=== PATIENT | male | born 1960 | race Caucasian/White ===

== ENCOUNTER 2018-01-01 13:55 | Emergency (ER) | payer MEDICARE, MEDICAID ==
--- NOTE | 2018-01-01 14:50 | EDM.PDOC ---
ED HPI GENERAL MEDICAL PROBLEM - General Chief Complaint: Respiratory Problem Stated Complaint: SOB Time Seen by Provider: 01/01/18 14:00 Source of Information: Reports: Other (Patient was not able to verbalize at all once he entered the [facility] of the hospital.) History Limitations: Reports: Respiratory Distress (Acute cardiac arrest presented with severe respiratory distress.), Other - History of Present Illness INITIAL COMMENTS - FREE TEXT/NARRATIVE: This 57-year-old male apparently was dropped off at the front door the hospital by his brother Elbert.. He has not been feeling well for a couple of days according to her niece who attended the ER approximately an hour after the patient had arrived. She states she went over to see him yesterday and he was feeling very poorly and she had one didn't come to the hospital but he declined. When she went back to see him this afternoon he was gone and she presumed he may be at the hospital. Patient presented in a moribund fashion. He was brought into the ED per and wheelchair arthritic and bernal in color and could not verbalize. He was in obvious respiratory distress according to the triage nurse. He is brought back immediately to the trauma bay and lifted up onto the gurney. He never did verbalize any complaints and then he collapsed. We could find no pulses. Therefore CPR was commenced he was intubated as quickly as possible with an 8 Spanish ET tube. Can't doubt any medications given. Bateman was clear. ET tube was taped at 22 cm corner of the left lip. There was always poor air entry to the left lung field and good air entry to the right lung field suggesting possible right mainstem intubation. two 2 chest x-rays were done and we did withdraw the tube somewhat and still has significant decreased air into the left lung field compared to the right. ET tube appears to be 2 cm above the chavez on the last chest x-ray. IV access was a problem and therefore an IO was started in his left leg. Initial dose of adrenaline 1 no was given intra osseous. Central line attempt right subclavian 2 with good blood return but unable to pass a guidewire due to coiling along the rib. Procedure abandoned and central line placed right femoral vein. CPR was carried out for approximately 5 minutes in total. Once the adrenaline got into system he developed a spontaneous heart rate in the 120s sinus and started to generate a low blood pressure. Initial blood gases revealed a pH of 6.9 therefore received 2 Amps of sodium bicarbonate. Nasal 16-gauge nasogastric tube passed through the right naris into the stomach. Good blood. appreciated. X-ray done last revealed the nasogastric tube to be below the diaphragm in the stomach. No evidence of left-sided pneumothorax or right-sided pneumothorax after subclavian line attempt was identified. There is diffuse severe vascular congestion with moderate cardiomegaly present. Patient was placed on a vent with initial settings of FiO2 100%. Tidal volume of 550 PEEP of 5 rate of 14. The CO2 monitor continued to show sustained levels at 70s. Her rate was increased to 18/m and PCO2 went down into the 60s. Repeat blood gases along the way revealed he still had a significant metabolic acidosis likely from perfusion or reperfusion of his extremities once his blood pressure returned. He was given 2 further doses of sodium bicarbonate 22 A. The ventilator was turned up to 24/m with a PEEP of 10. Paramedics arrived with the flight team and took over his care to provide transport to [facility] in [place]. CT of his brain was carried out while he was in the department and it did not reveal any intracranial mass effect or intracranial bleeding. It appears that he suffered a primary respiratory arrest with then subsequent cardiac arrest. Onset: Unknown/Unsure (Patient reports he wasn't feeling well yesterday but was not clear on what was wrong. He appeared to be short of breath) Onset Date: 01/01/18 (Respiratory arrest leading to cardiac arrest upon reaching the ED at 1400 hrs. today.) - Related Data Allergies Allergy/AdvReac Type Severity Reaction Status Date / Time No Known Allergies Allergy Verified 12/12/15 15:23 Home Meds: Home Meds Lisinopril/Hydrochlorothiazide [Lisinopril-Hctz 20-12.5 mg Tab] 1 each PO DAILY 07/08/15 [History] Omeprazole 20 mg PO DAILY 07/08/15 [History] metFORMIN [Glucophage] 850 mg PO BIDMEALS 07/08/15 [History] ClonazePAM [KlonoPIN] 1 mg PO BID 08/31/15 [History] ALPRAZolam [Xanax] 1 mg PO BEDTIME 01/01/18 [History] Albuterol [Ventolin HFA] 1 - 2 puff INH ASDIRECTED PRN 01/01/18 [History] Escitalopram [Lexapro] 20 mg PO DAILY 01/01/18 [History] Fluticasone/Vilanterol [Breo Ellipta 200-25 Mcg INH] 1 inh INH DAILY 01/01/18 [ History] Meloxicam 7.5 mg PO DAILY 01/01/18 [History] Umeclidinium [place] [Incruse Ellipta] 1 dose INH DAILY 01/01/18 [History] atorvaSTATin [Lipitor] 10 mg PO DAILY 01/01/18 [History] Past Medical History Cardiovascular History: Reports: High Cholesterol, Hypertension, SOB on Exertion Respiratory History: Reports: Asthma, SOB Gastrointestinal History: Reports: GERD Musculoskeletal History: Reports: Back Pain, Chronic Neurological History: Reports: Neuropathy, Diabetic Psychiatric History: Reports: Addiction (Alcohol dependency.), Depression, Other (See Below) (Chronic low back pain and is a chronic pain medication patient.) Endocrine/Metabolic History: Reports: Diabetes, Type II (Controlled with oral medications although no not to be not be very compliant.) - Past Surgical History Musculoskeletal Surgical History: Reports: Other (See Below) Social & Family History - Tobacco Use Smoking Status *Q: Current Every Day Smoker Years of Tobacco use: 35 Packs/Tins Daily: 1 Used Tobacco, but Quit: Yes Month/Year Tobacco Last Used: 1 week - Alcohol Use Days Per Week of Alcohol Use: 0 - Recreational Drug Use Recreational Drug Use: Yes Drug Use in Last 12 Months: Yes Recreational Drug Type: Reports: Marijuana/Hashish Recreational Drug Use Frequency: Socially Recreational Drug Last Use: 2 months ago - Living Situation & Occupation Living situation: Reports: Single Occupation: Unemployed ED ROS GENERAL - Review of Systems Review Of Systems: Unable To Obtain (Patient was never verbal.) ED EXAM, GENERAL - Physical Exam Exam: See Below Exam Limited By: Other (She presented in respiratory cardiac arrest.) General Appearance: Other (Morbidly obese blue in color) Eye Exam: Bilateral Eye: PERRL (Pupils did not respond to light on initial assessment.) Throat/Mouth: Normal Inspection, Normal Oropharynx, Other (No foreign bodies identified in the hypopharynx at the time of intubation which was within a minute of his presentation to the ED.) Head: Atraumatic, Normocephalic ( Cords were well visualized.) Neck: Normal Inspection, Supple, Non-Tender, Full Range of Motion, Other (Short " bull" neck) Respiratory/Chest: Other (Absent inspiratory effort at the time of my assessment.) Cardiovascular: Other (No carotid pulses palpable CPR commenced) GI/Abdominal: Other (The abdomen is grossly distended and obese. Somewhat tympanitic to percussion the upper abdomen no obvious masses palpable.) Rectal (Males) Exam: Other (We identified that he had bright red bleeding coming per rectum when we rolled him prior to transportation. This came as a surprise as he had had no rectal interventions performed.) Back Exam: Normal Inspection, Full Range of Motion, Other (No abnormalities on logrolling.) Extremities: Normal Inspection Neurological: Unresponsive EKG INTERPRETATION EKG Date: 01/01/18 Time: 14:23 Rhythm: Other (Sinus tachycardia) Rate (Beats/Min): 121 [place]: Normal P-Wave: Present QRS: Other (Nonspecific intraventricular conduction delay. Prominent R waves in V3 V4 suggesting septal hypertrophy/left ventricular hypertrophy pattern) ST-T: Depressed (Particularly noted in leads 3 aVF V4 to V6 I global ischemic changes) QT: Normal EKG Interpretation Comments: Abnormal ECG Course - Orders/Labs/Meds Orders: Active Orders 24 hr Category Date Time Status EKG Documentation Completion [RC] STAT Care 01/01/18 14:38 Active Ventilator Assessment [RT Ventilator, Adult] [RC] Care 01/01/18 15:30 Active ASDIRECTED OR PCXR-No Charge-PICC/Central [CR] Stat Exams 01/01/18 14:38 Taken Labs: Laboratory Tests 01/01/18 01/01/18 01/01/18 Range/Units 14:12 14:12 14:12 WBC 18.94 H (4.23-9.07) K/mm3 RBC 4.32 L (4.63-6.08) M/mm3 Hgb 12.2 L (13.7-17.5) gm/L Hct 40.3 (40.1-51.0) % MCV 93.3 H (79.0-92.2) fl MCH 28.2 (25.7-32.2) pg MCHC 30.3 L (32.2-35.5) g/dl RDW Std Deviation 56.8 H (35.1-43.9) fL Plt Count 336 (163-337) K/mm3 MPV 10.1 (9.4-12.3) fl Neutrophils % (Manual) 59 (40-60) % Band Neutrophils % 2 (0-10) % Lymphocytes % (Manual) 22 (20-40) % Atypical Lymphs % 1 % Monocytes % (Manual) 13 H (2-10) % Eosinophils % (Manual) 0 L (0.8-7.0) % Basophils % (Manual) 0 L (0.2-1.2) Myelocytes % 2 Promyelocytes % 1 Nucleated RBCs 1.0 % Platelet Estimate Adequate Polychromasia Few Anisocytosis 1+ slight Macrocytosis 1+ slight RBC Morph Comment Not Reportable PT 11.1 (8.0-13.0) SECONDS INR 1.04 D-Dimer, Quantitative (0.19-0.59) mg/L Puncture Site ABG pH (7.35-7.45) ABG pCO2 (35.0-45.0) mmHg ABG pO2 (80.0-100.0) mmHg ABG HCO3 (22.0-26.0) meq/L ABG O2 Saturation (96.0-97.0) % ABG Base Excess (-2-2.0) A-a Gradient mmHg O2 Delivery Device Oxygen Flow Rate FiO2 (21.00-100.00) % Tidal Volume cc PEEP cmH20 Pressure Support cmH2O Sodium 136 (136-145) mEq/L Potassium 4.8 (3.5-5.1) mEq/L Chloride 95 L (98-107) mEq/L Carbon Dioxide 20 L (21-32) mEq/L Anion Gap 25.8 H (5-15) BUN 54 H (7-18) mg/dL Creatinine 3.6 H (0.7-1.3) mg/dL Est Cr Clr Drug Dosing TNP Estimated GFR (MDRD) 18 (>60) mL/min BUN/Creatinine Ratio 15.0 (14-18) Glucose 177 H (74-106) mg/dL POC Glucose (70-105) mg/dL Calcium 9.8 (8.5-10.1) mg/dL Total Bilirubin 0.4 (0.2-1.0) mg/dL AST 214 H (15-37) U/L ALT 221 H (16-63) U/L Alkaline Phosphatase 181 H (46-116) U/L CK-MB (CK-2) 32.0 H (0-3.6) ng/ml Troponin I 0.732 H* (0.00-0.056) ng/mL C-Reactive Protein 35.1 H* (<1.0) mg/dL NT-Pro-B Natriuret Pep (0-125) pg/mL Total Protein 8.3 H (6.4-8.2) g/dl Albumin 2.9 L (3.4-5.0) g/dl Globulin 5.4 gm/dL Albumin/Globulin Ratio 0.5 L (1-2) 01/01/18 01/01/18 01/01/18 Range/Units 14:12 14:12 14:34 WBC (4.23-9.07) K/mm3 RBC (4.63-6.08) M/mm3 Hgb (13.7-17.5) gm/L Hct (40.1-51.0) % MCV (79.0-92.2) fl MCH (25.7-32.2) pg MCHC (32.2-35.5) g/dl RDW Std Deviation (35.1-43.9) fL Plt Count (163-337) K/mm3 MPV (9.4-12.3) fl Neutrophils % (Manual) (40-60) % Band Neutrophils % (0-10) % Lymphocytes % (Manual) (20-40) % Atypical Lymphs % % Monocytes % (Manual) (2-10) % Eosinophils % (Manual) (0.8-7.0) % Basophils % (Manual) (0.2-1.2) Myelocytes % Promyelocytes % Nucleated RBCs % Platelet Estimate Polychromasia Anisocytosis Macrocytosis RBC Morph Comment PT (8.0-13.0) SECONDS INR D-Dimer, Quantitative 1.43 H (0.19-0.59) mg/L Puncture Site ABG pH (7.35-7.45) ABG pCO2 (35.0-45.0) mmHg ABG pO2 (80.0-100.0) mmHg ABG HCO3 (22.0-26.0) meq/L ABG O2 Saturation (96.0-97.0) % ABG Base Excess (-2-2.0) A-a Gradient mmHg O2 Delivery Device Oxygen Flow Rate FiO2 (21.00-100.00) % Tidal Volume cc PEEP cmH20 Pressure Support cmH2O Sodium (136-145) mEq/L Potassium (3.5-5.1) mEq/L Chloride (98-107) mEq/L Carbon Dioxide (21-32) mEq/L Anion Gap (5-15) BUN (7-18) mg/dL Creatinine (0.7-1.3) mg/dL Est Cr Clr Drug Dosing Estimated GFR (MDRD) (>60) mL/min BUN/Creatinine Ratio (14-18) Glucose (74-106) mg/dL POC Glucose 151 H (70-105) mg/dL Calcium (8.5-10.1) mg/dL Total Bilirubin (0.2-1.0) mg/dL AST (15-37) U/L ALT (16-63) U/L Alkaline Phosphatase (46-116) U/L CK-MB (CK-2) (0-3.6) ng/ml Troponin I (0.00-0.056) ng/mL C-Reactive Protein (<1.0) mg/dL NT-Pro-B Natriuret Pep 08783 H (0-125) pg/mL Total Protein (6.4-8.2) g/dl Albumin (3.4-5.0) g/dl Globulin gm/dL Albumin/Globulin Ratio (1-2) 01/01/18 01/01/18 01/01/18 Range/Units 14:35 15:32 15:46 WBC (4.23-9.07) K/mm3 RBC (4.63-6.08) M/mm3 Hgb (13.7-17.5) gm/L Hct (40.1-51.0) % MCV (79.0-92.2) fl MCH (25.7-32.2) pg MCHC (32.2-35.5) g/dl RDW Std Deviation (35.1-43.9) fL Plt Count (163-337) K/mm3 MPV (9.4-12.3) fl Neutrophils % (Manual) (40-60) % Band Neutrophils % (0-10) % Lymphocytes % (Manual) (20-40) % Atypical Lymphs % % Monocytes % (Manual) (2-10) % Eosinophils % (Manual) (0.8-7.0) % Basophils % (Manual) (0.2-1.2) Myelocytes % Promyelocytes % Nucleated RBCs % Platelet Estimate Polychromasia Anisocytosis Macrocytosis RBC Morph Comment PT (8.0-13.0) SECONDS INR D-Dimer, Quantitative (0.19-0.59) mg/L Puncture Site Lt radial Lt radial Lt radial ABG pH 6.96 L* 7.13 L* 7.05 L* (7.35-7.45) ABG pCO2 93.0 H* 84.4 H* 102.7 H* (35.0-45.0) mmHg ABG pO2 271.0 H* 158.0 H* 190.0 H* (80.0-100.0) mmHg ABG HCO3 19.7 L 26.6 H 26.8 H (22.0-26.0) meq/L ABG O2 Saturation 98.6 H 98.2 H 98.4 H (96.0-97.0) % ABG Base Excess -14.6 L -3.8 L -6.0 L (-2-2.0) A-a Gradient 253 377 321 mmHg O2 Delivery Device Ambu bag Ventilator Ventilator Oxygen Flow Rate 15.0 FiO2 100.00 100.00 100.00 (21.00-100.00) % Tidal Volume 550.0 550.0 cc PEEP 5.0 5.0 cmH20 Pressure Support 0.0 cmH2O Sodium (136-145) mEq/L Potassium (3.5-5.1) mEq/L Chloride (98-107) mEq/L Carbon Dioxide (21-32) mEq/L Anion Gap (5-15) BUN (7-18) mg/dL Creatinine (0.7-1.3) mg/dL Est Cr Clr Drug Dosing Estimated GFR (MDRD) (>60) mL/min BUN/Creatinine Ratio (14-18) Glucose (74-106) mg/dL POC Glucose (70-105) mg/dL Calcium (8.5-10.1) mg/dL Total Bilirubin (0.2-1.0) mg/dL AST (15-37) U/L ALT (16-63) U/L Alkaline Phosphatase (46-116) U/L CK-MB (CK-2) (0-3.6) ng/ml Troponin I (0.00-0.056) ng/mL C-Reactive Protein (<1.0) mg/dL NT-Pro-B Natriuret Pep (0-125) pg/mL Total Protein (6.4-8.2) g/dl Albumin (3.4-5.0) g/dl Globulin gm/dL Albumin/Globulin Ratio (1-2) 03/25/18 Range/Units 15:49 WBC (4.23-9.07) K/mm3 RBC (4.63-6.08) M/mm3 Hgb (13.7-17.5) gm/L Hct (40.1-51.0) % MCV (79.0-92.2) fl MCH (25.7-32.2) pg MCHC (32.2-35.5) g/dl RDW Std Deviation (35.1-43.9) fL Plt Count (163-337) K/mm3 MPV (9.4-12.3) fl Neutrophils % (Manual) (40-60) % Band Neutrophils % (0-10) % Lymphocytes % (Manual) (20-40) % Atypical Lymphs % % Monocytes % (Manual) (2-10) % Eosinophils % (Manual) (0.8-7.0) % Basophils % (Manual) (0.2-1.2) Myelocytes % Promyelocytes % Nucleated RBCs % Platelet Estimate Polychromasia Anisocytosis Macrocytosis RBC Morph Comment PT (8.0-13.0) SECONDS INR D-Dimer, Quantitative (0.19-0.59) mg/L Puncture Site Lt radial ABG pH 7.20 L (7.35-7.45) ABG pCO2 84.2 H* (35.0-45.0) mmHg ABG pO2 317.0 H* (80.0-100.0) mmHg ABG HCO3 31.4 H (22.0-26.0) meq/L ABG O2 Saturation 99.5 H (96.0-97.0) % ABG Base Excess 1.8 (-2-2.0) A-a Gradient mmHg O2 Delivery Device Ventilator Oxygen Flow Rate FiO2 100.00 (21.00-100.00) % Tidal Volume 550.0 cc PEEP 10.0 cmH20 Pressure Support 0.0 cmH2O Sodium (136-145) mEq/L Potassium (3.5-5.1) mEq/L Chloride (98-107) mEq/L Carbon Dioxide (21-32) mEq/L Anion Gap (5-15) BUN (7-18) mg/dL Creatinine (0.7-1.3) mg/dL Est Cr Clr Drug Dosing Estimated GFR (MDRD) (>60) mL/min BUN/Creatinine Ratio (14-18) Glucose (74-106) mg/dL POC Glucose (70-105) mg/dL Calcium (8.5-10.1) mg/dL Total Bilirubin (0.2-1.0) mg/dL AST (15-37) U/L ALT (16-63) U/L Alkaline Phosphatase (46-116) U/L CK-MB (CK-2) (0-3.6) ng/ml Troponin I (0.00-0.056) ng/mL C-Reactive Protein (<1.0) mg/dL NT-Pro-B Natriuret Pep (0-125) pg/mL Total Protein (6.4-8.2) g/dl Albumin (3.4-5.0) g/dl Globulin gm/dL Albumin/Globulin Ratio (1-2) Meds: Medications Discontinued Medications Generic Name Dose Route Start Last Admin Trade Name Reji PRN Reason Stop Dose Admin Furosemide Confirm 01/01/18 15:18 Lasix Administered 01/01/18 15:19 Dose 80 mg .ROUTE .STK-MED ONE Propofol Confirm 01/01/18 15:10 Diprivan 100 Ml Administered 01/01/18 15:11 Dose 100 mls @ as directed .ROUTE .STK-MED ONE Sodium Bicarbonate Confirm 01/01/18 15:23 Sodium Bicarbonate 8.4% Administered 01/01/18 15:24 Dose 100 meq .ROUTE .STK-MED ONE - Radiology Interpretation Free Text/Narrative:: Please see initial history of present illness. Resuscitation efforts included CT scan of his brain once he was stabilized which revealed no abnormalities i.e. no intracranial lesion or bleeding. The major problem was making sure that the left lung was being ventilated. O2 sats remained at 100%. His PCO2 was difficult to slowly bring under control. Last blood gas showed a pH of 7.2 after 2 further ampules of sodium bicarbonate were given. Attempts to start a propofol drip in the ED failed as he developed significant hypotension almost immediately and it was stopped. He in fact took quite some time to regain a blood pressure greater than 90 and therefore was elected to start him on low- dose levo fed drip. Second ECG is similar to the first but it suggests a global ischemic changes from V4 to V6 and inferior wall involvement.Labwork revealed an elevated white count at 18.94 with 59% neutrophils 2% bands. Hemoglobin is 12.2 with hematocrit of 40.3. Platelet count was 336,000. PT was 11.1 with an INR of 1.04. D-dimer elevated at 1.43. Sodium was 136 with a potassium of 4.8. Chloride 95 with a bicarbonate of 20. Anion gap elevated at 25.8 likely due to lactic acidosis. BUN was 54 creatinine of 3.6. Appears that he had been suffering volume depletion with chronic renal insufficiency area is known to be a type II diabetic with poor control. Sugar was 177 initial blood sugar was 151 at the bedside when he lost consciousness. Calcium is 9.8 bilirubin 0.4. AST elevated at 214 ALT elevated at 221 alkaline phosphatase days elevated 181. Suspect hepatic congestion. CK-MB fraction was markedly elevated at 32.0 troponin I 0.732 with normal lab being up to 0..056. BNP was 12,377. Albumin fraction slightly low at 2.9. Spoke with Dr. Dudley Pompa - Re-Assessments/Exams Free Text/Narrative Re-Assessment/Exam: 01/01/18 17:[address] Dudley Pompa trade analyst at [facility] and he is accepted care of this patient. She'll be transported by [place] airplane since we do not have a ground ambulance crew and our helicopter is not functioning. Diagnosis appears to be extremely guarded and this was conveyed to a niece and a brother. Departure - Departure Time of Disposition: 16:10 Disposition: DC/Tfer to Acute Hospital 02 Condition: Critical Clinical Impression: Cardiac arrest, Recent myocardial infarction of anterior wall Congestive heart failure Qualifiers: Heart failure type: unspecified Heart failure chronicity: acute Qualified Code( s): I50.9 - Heart failure, unspecified - Discharge Information Referrals: Sherri Toussaint MANAGER [employer] [Primary Care Provider] - Forms: ED Department Discharge Additional Instructions: Patient was transferred to [facility] intensive care per air ambulance. Dr. Dudley Pompa trade analyst has accepted care at that facility - My Orders Last 24 Hours: My Active Orders 01/01/18 14:38 EKG Documentation Completion [RC] STAT OR PCXR-No Charge-PICC/Central [CR] Stat 01/01/18 15:30 Ventilator Assessment [RT Ventilator, Adult] [RC] ASDIRECTED - Assessment/Plan Last 24 Hours: My Active Orders 01/01/18 14:38 EKG Documentation Completion [RC] STAT OR PCXR-No Charge-PICC/Central [CR] Stat 01/01/18 15:30 Ventilator Assessment [RT Ventilator, Adult] [RC] ASDIRECTED
--- NOTE | 2018-01-01 15:00 | PCM.SN ---
- Free Text/Narrative Note: Anesthesia Note: Start: 1411 Stop: 1455 Anesthesia called for Code Blue. Upon arrival to ED, patient found unresponsive with tachyarrhythmia noted with pulse. Patient already intubated, with staff working for IV access. ABG attempted (venous) femoral left side, and successfully drawn with second attempt to left radial artery. ABG report handed to Dr. Cutler. 20 gauge angio placed to right inner wrist times 2 attempts. ([place]ine Lock) Dr. Cutler continuing with care and orders for this patient. LES Espinoza
[2018-01-01] MEDS ORDERED: Furosemide 40 MG/4 ML VIAL ONE (15:18)
[2018-01-01] MEDS ORDERED: EPINEPHrine 1 MG/ML SDV ONE (15:20)
[2018-01-01] MEDS ORDERED: DEXTROSE ONE (15:20)
[2018-01-01] MEDS ORDERED: Midazolam 1 MG/ML 5 ML SDV ONE (15:20)
[2018-01-01] MEDS ORDERED: Sodium Bicarbonate 8.4% 50 MEQ/50 ML Syringe ONE ×2 (15:20→15:23)
[2018-01-01] MEDS ORDERED: WATER ONE (15:20)
[2018-01-01] MEDS ORDERED: Norepinephrine 4 MG/4 ML SDV ONE (15:20)
[2018-01-01] MEDS ORDERED: EPINEPHrine 1:10,000 1 MG/10 ML Syringe ONE (15:20)
--- NOTE | 2018-01-01 15:23 | CT ---
Head CT Technique: Multiple axial sections through the brain were obtained. Intravenous contrast was not utilized. Comparison: Prior head CT exam of 11/28/15. Findings: Ventricles along with basal cisterns and sulci over convexities are within normal limits for the patient's age. No abnormal parenchymal densities are seen. No evidence of intracranial hemorrhage. No midline shift or mass effect is seen. Bone window settings were reviewed which shows nothing acute within the paranasal sinuses. No acute calvarial abnormality is seen. Impression: 1. Nothing acute is identified on noncontrast head CT study. No significant change is seen from prior head CT exam. Diagnostic code #1
--- NOTE | 2018-01-02 09:33 | CR ---
Chest: Portable view of the chest was obtained. Comparison: Prior chest x-ray of 06/09/16. Heart size and mediastinum are normal. Endotracheal tube is seen which lies slightly below the clavicle in satisfactory position. Nasogastric tube is seen which courses off the inferior edge of the film into the stomach. Lung markings are slightly increased which may relate to portable and supine technique. Lungs otherwise are clear. Bony structures are grossly intact. Impression: 1. Satisfactory position of endotracheal tube and nasogastric tube. Diagnostic code #2
== END 2018-01-01 16:10 ==
LOC: JD.ED 13:55
DX: I46.9 Cardiac arrest, cause unspecified (principal); I25.2 Old myocardial infarction; I11.0 Hypertensive heart disease with heart failure; I50.9 Heart failure, unspecified; E78.00 Pure hypercholesterolemia, unspecified; J45.909 Unspecified asthma, uncomplicated; E11.40 Type 2 diabetes mellitus with diabetic neuropathy, unspecified; F17.210 Nicotine dependence, cigarettes, uncomplicated; Z79.84 Long term (current) use of oral hypoglycemic drugs; Z79.899 Other long term (current) drug therapy
CPT/HCPCS: 31500; 36415; 36556; 36600; 36680; 51702; 51798; 70450; 80053; 82553; 82803; 82962; 83880; 84484; 85025; 85379; 85610; 86140; 92950; 93005; 96361; 96365; 96374; 96375; 96376; 99291; 99292; J0171; J1940; J2250; J7040; J7060; J3490

== ENCOUNTER 2018-11-03 21:13 | Emergency (ER) | payer MEDICARE, MEDICAID ==
[2018-11-03 21:28] VITALS: BP 135/82
[2018-11-03] MEDS ORDERED: Albuterol/Ipratropium 3.0-0.5 MG/3 ML Neb Soln NEB ONE (21:48)
--- NOTE | 2018-11-03 22:05 | EDM.PDOC ---
ED HPI GENERAL MEDICAL PROBLEM - General Chief Complaint: Respiratory Problem Stated Complaint: SOB Time Seen by Provider: 11/03/18 21:22 Source of Information: Reports: Patient History Limitations: Reports: No Limitations - History of Present Illness INITIAL COMMENTS - FREE TEXT/NARRATIVE: This is a 58-year-old male. Onset about 5 days ago with increasing shortness of breath with a cough. The cough has become productive since yesterday and his noted at home that his oxygen has dropped. He is not normally on oxygen but he bought an oxygen tank and started using it and it made him feel better. Due to the increasing shortness of breath and his oxygen dropping he comes to the emergency room because he ran out of oxygen. His pulse ox when he came in originally on room air was 79% and the low 80s. With 2 L per nasal cannula it goes up to 94%. The patient has audible wheezing when he breathes. He does smoke 1-1/2-2 packs of cigarettes per day. He has a history of congestive heart failure and a recent myocardial infarction in December 2017. He denies any recent increased swelling in his lower extremities. Denies any fever or chills and no nausea vomiting or diarrhea. 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: Other Medication(s) - Related Data Allergies Allergy/AdvReac Type Severity Reaction Status Date / Time No Known Allergies Allergy Verified 11/03/18 21:28 Home Meds: Home Meds Omeprazole 20 mg PO DAILY 07/08/15 [History] metFORMIN [Glucophage] 850 mg PO BIDMEALS 07/08/15 [History] ALPRAZolam [Xanax] 1 mg PO BID 01/01/18 [History] Umeclidinium Mobile [Incruse Ellipta] 1 dose INH DAILY 01/01/18 [History] Albuterol Sulfate [Proair Respiclick] 2 puff INH Q4HR PRN 11/03/18 [History] Aspirin [Halfprin] 81 mg PO DAILY 11/03/18 [History] D-Methorphan/Acetamin/Doxylamn [Night Time Cold-Flu Softgel] 1 tab PO Q8HR 11/03 [History] DULoxetine [Cymbalta] 30 mg PO DAILY 11/03/18 [History] Fluticasone/Vilanterol [Breo Ellipta 100-25 MCG Inhalation Kit] 1 puff PO DAILY 11/03/18 [History] Furosemide [Lasix] 40 mg PO DAILY 11/03/18 [History] Metoprolol Succinate [Toprol Xl] 50 mg PO BID 11/03/18 [History] Nitroglycerin [Nitrostat] 0.4 mg PO ASDIRECTED 11/03/18 [History] Pantoprazole [ProTONIX] 40 mg PO DAILY 11/03/18 [History] QUEtiapine [SEROquel] 50 mg PO BEDTIME 11/03/18 [History] atorvaSTATin [Lipitor] 40 mg PO BEDTIME 11/03/18 [History] guaiFENesin/Dextromethorphan [Robitussin Gwbqe-Lmzgc-Zxha Dm] 1 cap PO BID 11/03 [History] Albuterol/Ipratropium [DuoNeb 3.0-0.5 MG/3 ML] 3 ml .XX Q6H PRN #20 neb [Rx] Doxycycline [Vibramycin] 100 mg PO BID #14 cap 11/04/18 [Rx] Past Medical History Cardiovascular History: Reports: High Cholesterol, Hypertension, [place], SOB on Exertion Respiratory History: Reports: Asthma, SOB Gastrointestinal History: Reports: GERD Musculoskeletal History: Reports: Back Pain, Chronic Other Musculoskeletal History: arthritis; Neurological History: Reports: Neuropathy, Diabetic Psychiatric History: Reports: Addiction, Depression, Other (See Below) Endocrine/Metabolic History: Reports: Diabetes, Type II - Past Surgical History HEENT Surgical History: Reports: Tonsillectomy Musculoskeletal Surgical History: Reports: Other (See Below) Social & Family History - Tobacco Use Smoking Status *Q: Former Smoker Packs/Tins Daily: 2 Used Tobacco, but Quit: No - Caffeine Use Caffeine Use: Reports: None Caffeine Use Comment: unable to obtain; pt intubated; no family at bedside - Recreational Drug Use Recreational Drug Type: Reports: Marijuana/Hashish, Oxycodone Recreational Drug Use Frequency: Daily - Living Situation & Occupation Living situation: Reports: Single Occupation: Unemployed ED ROS GENERAL - Review of Systems Review Of Systems: See Below Constitutional: Reports: Weakness. Denies: Fever, Chills HEENT: Reports: No Symptoms Respiratory: Reports: Shortness of Breath, Wheezing, Cough, Sputum Cardiovascular: Denies: Chest Pain, Edema Endocrine: Reports: No Symptoms GI/Abdominal: Denies: Abdominal Pain, Diarrhea, Nausea, Vomiting : Reports: No Symptoms Musculoskeletal: Reports: Back Pain, Other (He has chronic musculoskeletal pain and back pain) Skin: Reports: Other (He does have some mild cyanosis the lips but this is chronic) Neurological: Reports: No Symptoms Psychiatric: Reports: No Symptoms Hematologic/Lymphatic: Reports: No Symptoms ED EXAM, GENERAL - Physical Exam Exam: See Below Exam Limited By: No Limitations General Appearance: Alert, Mild Distress, Obese Eye Exam: Bilateral Eye: Normal Inspection Ears: Normal External Exam Nose: Normal Inspection Throat/Mouth: Normal Inspection, Normal Lips, Normal Voice, Other (Mucous membranes are tacky) Head: Normocephalic Neck: Supple Respiratory/Chest: Wheezing, Other (Decreased breath sounds in the bases bilaterally, a few crackles heard mid kwok and the best respiratory sounds are found in the apexes, he has expiratory wheezing noted with a prolonged expiratory phase). No: Respiratory Distress Cardiovascular: Regular Rate, Rhythm, No Edema, No Murmur GI/Abdominal: Other (Patient is obese but he denies any abdominal pain) Back Exam: Decreased Range of Motion Extremities: Other (His fingers are slightly cyanotic in the nail, he does not have any noted marked edema of the lower extremities presently) Neurological: Alert, Oriented Psychiatric: Normal Affect, Normal Mood Skin Exam: Warm EKG INTERPRETATION EKG Date: 11/03/18 Time: 21:37 EKG Interpretation Comments: He has a normal sinus rhythm, there is no acute ST or T-wave changes noted. There is no ischemia noted. He has a normal QRS axis. Course - Vital Signs Last Recorded V/S: Last Vital Signs Temp 97.8 F 11/03/18 21:22 Pulse 93 11/03/18 21:22 Resp 30 H 11/03/18 21:22 BP 135/82 11/03/18 21:22 Pulse Ox 85 L 11/03/18 23:15 - Orders/Labs/Meds Orders: Active Orders 24 hr Category Date Time Status RT Aerosol Therapy [RC] ASDIRECTED Care 11/03/18 21:48 Active Chest 2V [CR] Stat Exams 11/03/18 21:48 Taken cefTRIAXone [Rocephin] 1 gm Med 11/03/18 23:45 Active Lidocaine 1% [Xylocaine 1%] 2.1 ml IM Q24H Medication Orders Ceftriaxone Sodium 1 gm/ (Lidocaine HCl 2.1 ml) 0 gm IM Q24H RANDY Last Admin: 11/04/18 00:01 Dose: 1 inj Labs: Laboratory Tests 11/03/18 11/03/18 11/03/18 Range/Units 22:08 22:08 22:08 WBC 9.89 H (4.23-9.07) K/mm3 RBC 4.43 L (4.63-6.08) M/mm3 Hgb 12.2 L (13.7-17.5) gm/L Hct 39.4 L (40.1-51.0) % MCV 88.9 (79.0-92.2) fl MCH 27.5 (25.7-32.2) pg MCHC 31.0 L (32.2-35.5) g/dl RDW Std Deviation 57.7 H (35.1-43.9) fL Plt Count 297 (163-337) K/mm3 MPV 9.2 L (9.4-12.3) fl Neut % (Auto) 73.5 H (34.0-67.9) % Lymph % (Auto) 13.0 L (21.8-53.1) % [place] % (Auto) 12.1 (5.3-12.2) % Eos % (Auto) 0.7 L (0.8-7.0) Baso % (Auto) 0.2 (0.1-1.2) % Neut # (Auto) 7.26 H (1.78-5.38) K/mm3 Lymph # (Auto) 1.29 L (1.32-3.57) K/mm3 [place] # (Auto) 1.20 H (0.30-0.82) K/mm3 Eos # (Auto) 0.07 (0.04-0.54) K/mm3 Baso # (Auto) 0.02 (0.01-0.08) K/mm3 Sodium 141 (136-145) mEq/L Potassium 3.6 (3.5-5.1) mEq/L Chloride 103 (98-107) mEq/L Carbon Dioxide 29 (21-32) mEq/L Anion Gap 12.6 (5-15) BUN 19 H (7-18) mg/dL Creatinine 1.4 H (0.7-1.3) mg/dL Est Cr Clr Drug Dosing 57.51 mL/min Estimated GFR (MDRD) 52 (>60) mL/min BUN/Creatinine Ratio 13.6 L (14-18) Glucose 100 (74-106) mg/dL Calcium 9.2 (8.5-10.1) mg/dL Total Bilirubin 0.4 (0.2-1.0) mg/dL AST 33 (15-37) U/L ALT 73 H (16-63) U/L Alkaline Phosphatase 139 H (46-116) U/L NT-Pro-B Natriuret Pep 3509 H (0-125) pg/mL Total Protein 7.5 (6.4-8.2) g/dl Albumin 2.9 L (3.4-5.0) g/dl Globulin 4.6 gm/dL Albumin/Globulin Ratio 0.6 L (1-2) Meds: Medications Generic Name Dose Route Start Last Admin Trade Name Freq PRN Reason Stop Dose Admin Ceftriaxone Sodium 1 gm/ 0 gm 11/03/18 23:45 11/04/18 00:01 Lidocaine HCl 2.1 ml IM 1 inj Q24H RANDY Administration Discontinued Medications Generic Name Dose Route Start Last Admin Trade Name Freq PRN Reason Stop Dose Admin Albuterol/Ipratropium 3 ml 11/03/18 21:48 11/03/18 21:58 Duoneb 3.0-0.5 Mg/3 Ml NEB 11/03/18 21:49 3 ml ONETIME ONE Administration - Radiology Interpretation Free Text/Narrative:: Chest x-ray shows very large lung field suggesting some COPD though his diaphragms were not particularly flattened, he might have a slight infiltrate in the left lower lung but there does not appear to be any extensive congestive heart failure. - Re-Assessments/Exams Free Text/Narrative Re-Assessment/Exam: 11/04/18 00:19 Spoke to the patient regarding his chest x-ray that he does have COPD and a suggestion of atelectasis or may be an infiltrate in the left lower lobe. We were able to get him a oxygen concentrator to take home. The patient wants to go home now. I did speak to him regarding his blood work as well. He is going to follow up with his family doctor this coming week for recheck and he knows to return to the ER if his breathing status deteriorates. Departure - Departure Time of Disposition: 00:20 Disposition: Home, Self-Care 01 Condition: Fair Clinical Impression: COPD exacerbation, Hypoxemia Acute bronchitis Qualifiers: Bronchitis organism: unspecified organism Qualified Code(s): J20.9 - Acute bronchitis, unspecified - Discharge Information *PRESCRIPTION DRUG MONITORING PROGRAM REVIEWED*: Not Applicable *COPY OF PRESCRIPTION DRUG MONITORING REPORT IN PATIENT EMILY: Not Applicable Prescriptions: Albuterol/Ipratropium [DuoNeb 3.0-0.5 MG/3 ML] 3 ml .XX Q6H PRN #20 neb PRN Reason: Wheezing Doxycycline [Vibramycin] 100 mg PO BID #14 cap Referrals: Keyur Pompa MD [Primary Care Provider] - Forms: ED Department Discharge Additional Instructions: Stay on the oxygen concentrator at 2 L/m nasal cannula, get your antibiotics and the breathing medication in the morning, use the nebulizer every 6 hours for the wheezing and the shortness of breath, take your antibiotics faithfully twice a day, follow up with your family doctor this coming week for recheck, return to the ER if your symptoms worsen - My Orders Last 24 Hours: My Active Orders 11/03/18 21:48 RT Aerosol Therapy [RC] ASDIRECTED Chest 2V [CR] Stat 11/03/18 23:45 cefTRIAXone [Rocephin] 1 gm Lidocaine 1% [Xylocaine 1%] 2.1 ml IM Q24H - Assessment/Plan Last 24 Hours: My Active Orders 11/03/18 21:48 RT Aerosol Therapy [RC] ASDIRECTED Chest 2V [CR] Stat 11/03/18 23:45 cefTRIAXone [Rocephin] 1 gm Lidocaine 1% [Xylocaine 1%] 2.1 ml IM Q24H
[2018-11-03] MEDS ORDERED: cefTRIAXone 1 GM, Lidocaine 1% 2.1 ML IM SCH ×2 (23:45)
--- NOTE | 2018-11-04 15:50 | CR ---
Chest: Two views of the chest were obtained. Comparison: Prior chest x-ray of 01/01/18. Heart size and mediastinum are within normal limits. Mild peribronchial wall thickening is seen within the perihilar regions. Lungs otherwise are clear. Bony structures appear within normal limits for the patient's age. Impression: 1. Findings suspicious for mild bronchitis. Diagnostic code #3
== END 2018-11-04 00:35 | disposition home or self-care (01) ==
LOC: JD.ED 21:13
DX: J44.1 Chronic obstructive pulmonary disease with (acute) exacerbation (principal); R09.02 Hypoxemia; E11.9 Type 2 diabetes mellitus without complications; I25.2 Old myocardial infarction; I10 Essential (primary) hypertension; Z79.899 Other long term (current) drug therapy; Z87.891 Personal history of nicotine dependence
CPT/HCPCS: 36415; 71046; 80053; 83880; 85025; 94640; 96372; 99285; J0696; J2001; 99284; J7620-GY

== ENCOUNTER 2024-11-15 18:44 | Emergency (ER) | payer MEDICARE, MEDICAID ==
[2024-11-15] MEDS: Oxymetazoline 0.05% Nasal Spray 30 ML Bottle NAS ONE (19:32)
[2024-11-15] MEDS ORDERED: Bacitracin Oint 15 GM Tube TOP ONE (20:40)
[2024-11-15 20:56] VITALS: BP 100/80; PULSE 80
== END 2024-11-15 20:50 | disposition home or self-care (01) ==
LOC: JD.ED 18:44
DX: R04.0 Epistaxis (principal); I10 Essential (primary) hypertension; J45.909 Unspecified asthma, uncomplicated; K21.9 Gastro-esophageal reflux disease without esophagitis; E78.00 Pure hypercholesterolemia, unspecified; E11.9 Type 2 diabetes mellitus without complications; F17.210 Nicotine dependence, cigarettes, uncomplicated; Z79.82 Long term (current) use of aspirin; Z79.84 Long term (current) use of oral hypoglycemic drugs; Z79.899 Other long term (current) drug therapy
CPT/HCPCS: 30901; 99283-25; A9270-GY